=== PATIENT | female | born 1945 | race African-American/Black ===

== ENCOUNTER → 2017-10-30 | Day surgery (SDC) | payer MEDICARE ==
--- NOTE | 2017-10-24 10:39 | Diagnostic Imaging Report ---
PROCEDURE:CHEST 2 VIEWS TECHNIQUE:PA and lateral chest INDICATION:Preoperative evaluation for foot surgery COMPARISON:None. FINDINGS: Lungs are clear. No pleural effusions. Normal heart size, mediastinal contour and pulmonary vasculature. Normal skeleton. CONCLUSION: Normal chest. Dictated by: Dilip Morales M.D. on 10/24/2017 at 10:48 Electronically approved by: Dilip Morales M.D. on 10/24/2017 at 10:48
[2017-10-24 10:49] LABS: BASOPHILS % 0.5 % (0.0-1.0); EOSINOPHILS # (AUTO) 0.8 (0.0-0.4); EOSINOPHILS % 9.5 % (0.0-6.0); HEMATOCRIT 39.6 % (34.2-44.1); HEMOGLOBIN 13.2 g/dL (12.0-16.0); LYMPHOCYTES # (AUTO) 1.8 (1.0-3.2); LYMPHOCYTES % 20.8 % (18.0-39.1); MEAN CORPUSCULAR HEMOGLOBIN 29.4 pg (28-32); MEAN CORPUSCULAR HGB CONC 33.3 g/dL (31-35); MEAN CORPUSCULAR VOLUME 88.2 fL (81-99); MONOCYTES # (AUTO) 0.6 (0.2-0.8); MONOCYTES % 6.5 % (4.4-11.3); NEUTROPHILS # (AUTO) 5.5 (2.1-6.9); NEUTROPHILS % 62.5 % (38.7-80.0); PLATELET COUNT 294 x10e3/uL (140-360); RED BLOOD COUNT 4.49 x10e6/uL (3.6-5.1); RED CELL DISTRIBUTION WIDTH 13.7 % (11.7-14.4)
[2017-10-24 10:59] LABS: INR 0.87; PARTIAL THROMBOPLASTIN TIME 30.5 seconds (23.8-35.5); PROTHROMBIN TIME 12.3 seconds (11.9-14.5)
[2017-10-24 11:03] LABS: ANION GAP 12.2 mmol/L (8-16); BLOOD UREA NITROGEN 14 mg/dL (7-26); BUN/CREATININE RATIO 18 (6-25); CALCIUM 9.1 mg/dL (8.4-10.2); CARBON DIOXIDE 29 mmol/L (22-29); CHLORIDE 102 mmol/L (98-107); CREATININE, SERUM 0.78 mg/dL (0.57-1.11); EST GLOMERULAR FILTRATION RATE > 60 ML/MIN (60-); GLUCOSE 140 mg/dL (74-118); POTASSIUM 4.2 mmol/L (3.5-5.1); SODIUM 139 mmol/L (136-145)
[~2017-10-30] MED LIST: ACETAMINOPHEN 1000 MG/100 ML IV ONE; AMLODIPINE BESY10 MG PO; ASPIR 8181 MG PO; BACITRACIN ZINC 15 GM OINT ONE; BETAMETHASONE DISODIUM PHOS 6 MG/ML VIAL ONE; BUPIVACAINE HCL 0.5% INJ 30 ML VIAL INJ ONE; CLINDAMYCIN PHOS 900MG/ D5W 50 50 ML IV ONE; DEXAMETHASONE SOD PHOS INJ 4 MG/ML VIAL ONE; EPHEDRINE SULFATE INJ 50 MG/10 ML SYR ONE; FENTANYL CITRATE/PF 100MCG/2 ML INJ ONE; GLYCOPYRROLATE INJ 1MG/ 5 ML SYR ONE; HYDROCHLOROTHIA25 MG PO; KLOR-CON 1010 MEQ PO; LIDOCAINE HCL 2% LOCAL INJ 5 ML SDV VIAL INJ ONE; LOSARTAN-HCTZ1 EAC1 PO; LYRICA75 MG PO; METFORMIN HCL500 M2 PO; MUPIROCIN 2% OINT 22 GM TUBE ONE; ONDANSETRON HCL INJ 2 MG/ML VIAL ONE; OXYBUTYNIN CHLOR5 MG PO; PROPOFOL IV EMULSION 10 MG/ML 20 ML VIAL ONE; SEVOFLURANE INHAL SOLN 250 ML PEN BTL ONE; SIMVASTATIN40 MG PO
--- OUTSIDE RECORDS SUMMARY | 2017-10-30 05:11 | XMS REPORT ---
Author Author [facility] Address Unknown Phone Unavailable Care Team Providers [facility] Supervisor Name Role Phone CHANI HAMMOND Unavailable Unavailable Problems This patient has no known problems. Allergies, Adverse Reactions, Alerts This patient has no known allergies or adverse reactions. Medications This patient has no known medications. Results Test Description Test Time Test Comments Text Results Atomic Results Result Comments CHEST 2 VIEWS [place] [address] Patient Name: JAVIER HUYNH MR #: [id number] : 1945 Age/Sex: 72/F Req #: [id number] Adm Physician: Ordered by: CHANI HAMMOND DPM Report #: [id number] Location: OR Room/Bed: Procedure: [id number] DX/ CHEST 2 VIEWS Exam Date: 10/24/17 Exam Time: 1000 REPORT STATUS: Signed PROCEDURE: CHEST 2 VIEWS TECHNIQUE: PA and lateral chest INDICATION: Preoperative evaluation for foot surgery COMPARISON: None. FINDINGS: Lungs are clear. No pleural effusions. Normal heart size, mediastinal contour and pulmonary vasculature. Normal skeleton. CONCLUSION: Normal chest. Dictated by: Lenard Morales M.D. on 10/24/2017 at 10:48 Electronically approved by : Lenard Morales M.D. on 10/24/2017 at 10:48 Dictated By : LENARD MORALES MD [id number] Transcribed By: HORACE on 10/24/171047 COPY TO: CHANI HAMMOND DPM
--- NOTE | 2017-10-30 09:44 | Diagnostic Imaging Report ---
PROCEDURE:X-RAY LEFT FOOT, TWO VIEWS COMPARISON:None. INDICATIONS:POST LEFT FOOT SURGERY FINDINGS: See conclusion. CONCLUSION: AP and lateral post-operative views of the left foot with overlying bandage material show post-surgical changes of a bunionectomy and arthroplasty with wire and screw through the distal first metatarsal and K-wires through the first, second, third and fourth digits. There is surrounding soft-tissue swelling consistent with recent surgery. Please refer to performing physician's notes for full details of this procedure. Angel Barney D.O. Dictated by: Angel Barney D.O. on 10/30/2017 at 9:54 Electronically approved by: Angel Barney D.O. on 10/30/2017 at 9:54
--- NOTE | 2017-10-30 10:09 | Operative Report ---
DATE OF PROCEDURE: October 30, 2017 PREOPERATIVE DIAGNOSES 1. Painful hallux valgus deformity, left foot. 2. Painful contracted hammertoe, 2nd digit, left. 3. Painful contracted hammertoe, 3rd digit, left. 4. Painful contracted hammertoe, 4th digit, left. 5. Painful contracted hammertoe, 5th digit, left. 6. Fractured left great toe. POSTOPERATIVE DIAGNOSES 1. Painful hallux valgus deformity, left foot. 2. Painful contracted hammertoe, 2nd digit, left. 3. Painful contracted hammertoe, 3rd digit, left. 4. Painful contracted hammertoe, 4th digit, left. 5. Painful contracted hammertoe, 5th digit, left. 6. Fractured left great toe. OPERATIVE PROCEDURES 1. Jevon bunionectomy with screw fixation, left foot. 2. Arthroplasty of 2nd with K-wire fixation, 2nd through 4th. 3. Arthroplasty of 3rd with K-wire fixation, 2nd through 4th. 4. Arthroplasty of 4th with K-wire fixation, 2nd through 4th. 5. Arthroplasty of 5th with K-wire fixation, 2nd through 4th. 6. Open reduction internal fixation of left great toe. 7. Intraoperative use of fluoroscopy. 8. Trigger point shot of cortisone. 9. Application of posterior splint. ANESTHESIA: General PROCEDURE IN DETAIL: Patient was taken into the operating room and placed on the operating table in the supine position. Following induction of general anesthesia by the anesthesiologist, Webril wraps were placed on the patient's left thigh followed by the application of a left thigh tourniquet. The left lower extremity was then prepped and draped in the usual aseptic manner. The following procedure was then performed. PROCEDURE #1: Jevon bunionectomy with screw fixation of the left foot. Attention was directed to the dorsomedial aspect of the 1st MPJ where a 6 cm linear incision was performed. The incision was deepened down to the joint capsule. Longitudinal capsulotomy was then performed exposing a dorsomedial exostosis of the 1st metatarsal head. Via the use of an oscillating saw, the dorsal and medial exostosis was excised from the operation site in toto. A V-osteotomy was then performed from medial to lateral. Capital fragment was then transpositioned laterally. Upon adequate surgical and anatomical reduction utilizing proper AO technique, a 2 x 14 mm cortical screw in conjunction with a buried 0.045 K-wire was used to achieve stability of the osteotomy site. All redundant bone medially was then excised via the use of an oscillating saw and rotating bur. Range of motion was still noted to be tracked down. The extensor brevis tendon was isolated and tenotomized. Once that was done, excellent range of motion and align was achieved. PROCEDURES 2-5: Arthroplasty of 2nd through 5th with K-wire fixation, 2nd through 4th. Attention was then directed to the above-mentioned toes overlying the proximal interphalangeal joint where a 3 cm linear incision was performed. Incision was deepened down to the joint capsule. Transverse capsulotomy was then performed exposing the head of the proximal phalanxes. Via use of an oscillating saw, head of the proximal phalanxes were excised from the operation site in toto. The 2nd through 4th toes were still noted to be contracted, so a 0.045 K-wire was introduced crossing the metatarsophalangeal joints to achieve proper anatomical reduction. PROCEDURE #6: Open reduction internal fixation of fractured left great toe. Attention was then directed to the dorsal aspect of the left great toe where a curvilinear incision was performed overlying the proximal interphalangeal joint. The incision was deepened down to the joint capsule. Transverse capsulotomy was then performed exposing the fractured fragments. The fracture fragments were removed from the base of the proximal phalanx and head of the proximal phalanx of the left great toe. Cross K-wires were then introduced to achieve proper anatomical reduction and hopefully fusion of the left foot. PROCEDURE #7: Intraoperative use of fluoroscopy was then used to make sure proper alignment and fixation was achieved. Closure was then obtained utilizing 3-0 Vicryl, 4-0 Vicryl and 4-0 nylon for capsule, subcutaneous tissue and skin respectively. PROCEDURE #8: Trigger point shot of cortisone was then given to the 1st and 4th interspace of the left foot. Then approximately 20-25 mL of 0.5% plain Marcaine were used to achieve local anesthesia to the above-mentioned surgical area. A sterile dressing was applied. Upon release of the thigh tourniquet, blood hyperemia is noted immediately to all digits of the patient's left foot. PROCEDURE #9: Application of posterior splint. A properly placed posterior splint was then applied keeping the foot at 90 degrees with respect to the leg to try to prevent any type of postop complications. Patient was then transferred from the OR to the recovery room with vital signs stable and neurovascular status intact. No intraoperative complications were encountered. Blood loss from the surgery is minimal. Patient to remain nonweightbearing with the aid of crutches. Keep the foot elevated and is to apply an ice pack to the ankle joint area. Job#: [id number] RICHARDSON
== END | disposition home or self-care (01) ==
LOC: OR 05:09
PROVIDERS: ATTEND Podiatrist Foot Surgery
DX: M20.12 Hallux valgus (acquired), left foot (principal); S92.412A Displaced fracture of proximal phalanx of left great toe, initial encounter for closed fracture; M20.42 Other hammer toe(s) (acquired), left foot; E11.9 Type 2 diabetes mellitus without complications; I10 Essential (primary) hypertension; K25.9 Gastric ulcer, unspecified as acute or chronic, without hemorrhage or perforation; R00.1 Bradycardia, unspecified; X58.XXXA Exposure to other specified factors, initial encounter; Z01.810 Encounter for preprocedural cardiovascular examination; Z01.812 Encounter for preprocedural laboratory examination; Z01.818 Encounter for other preprocedural examination; Z79.82 Long term (current) use of aspirin; Z86.73 Personal history of transient ischemic attack (TIA), and cerebral infarction without residual deficits
CPT/HCPCS: 28285 ×4; 28296; 28505; 36415 ×2; 71046; 73620; 80048; 82948; 85025; 85610; 85730; 93005; C1713; J0720; J1100; J2001; J2405